=== PATIENT | male | born 1990 | race Caucasian/White ===

== ENCOUNTER 2025-02-09 05:50 | Day surgery (SDC) | payer BC, SELFPAY ==
[2025-02-09 06:30] VITALS: BP 116/81
[2025-02-09 06:35] VITALS: BMI 23.6
[2025-02-09 06:36] VITALS: BMI 23.6
[2025-02-09] MEDS: NORMOSOL-R/PLASMALYTE-A 1000 IV (06:40)
[2025-02-09 08:04] VITALS: BP 111/53
[2025-02-09 08:15] VITALS: BP 110/72
[2025-02-09 08:30] VITALS: BP 101/62
== END 2025-02-09 08:40 | disposition home or self-care (01) ==
LOC: SDS 05:50
PROVIDERS: ATTENDING PHYSICIAN Surgery
DX: Z30.2 Encounter for sterilization (principal)
CPT/HCPCS: 55250; 88302